=== PATIENT | female | born 1945 | race Caucasian/White ===

== ENCOUNTER 2016-10-30 16:56 | Inpatient (IN) | payer OTHER ==
[~2016-10-30] VITALS: Ht 154.9 cm; Wt 76.2 kg
--- NOTE | ~2016-10-30 | 2DMMODE ---
[facility] [address] [place] [address] 2 D/M-MODE ECHOCARDIOGRAM Name: MIRIAM ALFRED Room #: 455-P [facility] [place] ..#: [id number] Admission: 10/30/16 Attend Phys: Ranjith Gant MD Discharge: 11/01/16 Date of : 43 Date of Service: 11/01/16 1514 Report #: [id number] THIS REPORT FOR: //name// APPROVED REPORT Study performed: 11/01/2016 11:23:16 EXAM: Comprehensive 2D, Doppler, and color-flow Echocardiogram Patient Location: Bedside Room #: [facility] Status: stat Other Information Study Quality: Adequate Indications CVA/TIA Echo Enhancing Agent Indication: Rule out Shunt Agent(s) / Amount(s) Used: Agitated Saline 6 cc 2D Dimensions RVDd: 27.64 mm LVEF(%): 60.00 (>50%) IVSd: 10.65 (7-11mm) LVOT Diam: 18.45 (18-24mm) LVDd: 37.70 mm PWd: 11.43 (7-11mm) Ascending Ao: 33.01 (22-36mm) LVDs: 25.88 (25-40mm) Aortic Root: 23.03 mm IVC: 11.00 mm Hairston's LVEF: 60.00 % Volumes Left Atrial Volume (Systole) Single Plane 4CH: 50.05 mL Single Plane 2CH: 43.29 mL LA ESV Index: 31.00 mL/m2 Aortic Valve AoV Peak Taco.: 1.77 m/s AO Peak Gr.: 12.56 mmHg LVOT Max P.54 mmHg LVOT Max V: 1.06 m/s JOAN Vmax: 1.61 cm2 Mitral Valve E/A Ratio: 0.6 MV Decel. Time: 269.27 ms [facility] [place] [address] 2 D/M-MODE ECHOCARDIOGRAM Name: TANIA ALFREDRA Room #: 455-P [facility]..#: [id number] Admission: 10/30/16 Attend Phys: Ranjith Gant MD Discharge: 11/01/16 Date of : 43 Date of Service: 11/01/16 1514 Report #: [id number] MV E Max Taco.: 0.89 m/s MV A Taoc.: 1.55 m/s MV PHT: 78.09 ms IVRT: 121.11 ms Pulmonary Valve PV Peak Taco.: 0.98 m/s PV Peak Gr.: 3.87 mmHg Pulmonary Vein P Vein S: 0.49 m/s P Vein A: 0.28 m/s P Vein D: 0.29 m/s P Vein A Dur.: 131.5 msec P Vein S/D Ratio: 1.69 Tricuspid Valve TR Peak Taco.: 3.00 m/s RAP Estimate: 10.00 mmHg TR Peak Gr.: 35.98 mmHg Left Ventricle The left ventricle is normal size. Mild concentric left ventricular hypertrophy. Left ventricular systolic function is normal. LVEF is 55-60%. Mild diastolic dysfunction is present (impaired relaxation pattern). Right Ventricle The right ventricle is normal size. The right ventricular systolic function is normal. Atria Left atrium is mildly dilated. Injection of bubbles documented no interatrial shunt. The right atrium size is normal. Aortic Valve The aortic valve is normal in structure. Mild aortic regurgitation. There is no aortic valvular stenosis. Mitral Valve The mitral valve is normal in structure. Mild mitral regurgitation. No evidence of mitral valve stenosis. Tricuspid Valve The tricuspid valve is normal in structure. There is trace tricuspid regurgitation. The right atrial pressure is estimated at 10 mmHg. PAP is estimated at 45 mmHg. Pulmonic Valve Pulmonic [place] [address] 2 D/M-MODE ECHOCARDIOGRAM Name: MIRIAM ALFRED Room #: 455-P [facility] [place] M.R.#: [id number] Admission: 10/30/16 Attend Phys: Ranjith Gant MD Discharge: 11/01/16 Date of : 43 Date of Service: 11/01/16 1514 Report #: [id number] Great Vessels The aortic root is normal in size. IVC is normal in size and collapses <50% with inspiration. <Conclusion> The left ventricle is normal size. Mild concentric left ventricular hypertrophy. Left ventricular systolic function is normal. Mild diastolic dysfunction is present (impaired relaxation pattern). The right ventricle is normal size. Left atrium is mildly dilated. Injection of bubbles documented no interatrial shunt. Mild aortic regurgitation. Mild mitral regurgitation. <ELECTRONICALLY SIGNED> By: Fracisco Hopkins MD 11/01/16 1514 1514 1514 Fracisco Hopkins MD /INF
[2016-10-30 19:09] VITALS: BP 159/95
[2016-10-30] MEDS ORDERED: SIMVASTATIN40 MG PO (20:11)
[2016-10-30] MEDS ORDERED: SYMBICORT160 MCG/4. INH (20:12)
[2016-10-30] MEDS ORDERED: COZAAR 50 MG TA50 M2 PO (20:12)
[2016-10-30] MEDS ORDERED: REQUIP 1 MG TABL1 M1 PO (20:13)
[2016-10-30 23:25] VITALS: BP 165/93
[2016-10-31 04:00] VITALS: BP 169/106
[2016-10-31 04:31] LABS: HEMATOCRIT 43.5 % (37.0-47.0); HEMOGLOBIN 14.5 gm/dL (12.0-15.0); MCH 29.8 pg (26.0-34.0); MCHC 33.3 g/dL (28.0-37.0); MCV 89.5 fL (80.0-100.0); RBC 4.86 mil/uL (4.20-5.00); RDW 13.1 % (10.5-14.5); WBC 10.5 thou/uL (4.0-11.0)
[2016-10-31 04:45] LABS: ANION GAP 8 mmol/L (7-16); BUN 12 mg/dL (7-18); CALCIUM 8.5 mg/dL (8.5-10.1); CHLORIDE 106 mmol/L (98-107); CHOLESTEROL 200 mg/dL (<200); CO2 27 mmol/L (21-32); CREATININE 0.7 mg/dL (0.6-1.0); GLUCOSE 137 mg/dL (74-106); HDL CHOLESTEROL 28 mg/dL (>40); POTASSIUM 3.8 mmol/L (3.5-5.1); SODIUM 141 mmol/L (136-145); TC:HDL 7.1 Ratio (Not establshd); TRIGLYCERIDE 417 mg/dL (<150); TROPONIN-I < 0.04 ng/mL (<0.04-0.07); VLDL 83 mg/dL (<40)
[2016-10-31 04:46] LABS: SERUM ASSESSMENT Slight Lipemia
[2016-10-31 05:57] LABS: URINE BILIRUBIN NEGATIVE (Negative); URINE BLOOD 1+ (Negative); URINE COLOR YELLOW; URINE GLUCOSE-RANDOM* NEGATIVE (Negative); URINE KETONES NEGATIVE (Negative); URINE LEUKOCYTES-REFLEX NEGATIVE (Negative); URINE PROTEIN (DIPSTICK) 2+ (Negative); URINE UROBILINOGEN 0.2 E.U./dl (0.2-1.0)
[2016-10-31 06:07] LABS: SQUAMOUS 4-10 Moderate /LPF (0-3)
[2016-10-31 06:08] LABS: CASTS None Seen /LPF (None Seen); CRYSTALS None Seen /LPF (None Seen); URINE RBC 0-2 Rare /HPF (0-2); URINE WBC-REFLEX 0-5 Rare /HPF (0-5)
[2016-10-31 07:10] VITALS: BP 174/99
[2016-10-31 10:53] LABS: TSH 1.644 uIU/mL (0.358-3.740)
[2016-10-31 11:16] VITALS: BP 174/98
[2016-10-31 15:08] VITALS: BP 174/93
[2016-10-31 20:20] VITALS: BP 150/106
[2016-10-31] MEDS ORDERED: TRAMADOL 50 MG50 MG PO (22:14)
[2016-10-31] MEDS ORDERED: METFORMIN HCL500 MG PO (22:15)
[2016-10-31] MEDS ORDERED: LASIX 40 MG TAB40 M2 PO (22:15)
[2016-10-31] MEDS ORDERED: NEXIUM40 MG PO (22:18)
[2016-10-31] MEDS ORDERED: POTASSIUM99 M2 (22:19)
[2016-10-31] MEDS ORDERED: FISH OIL 1,001000 M2 PO (22:21)
[2016-10-31] MEDS ORDERED: FOLIC ACID1 MG PO (22:22)
[2016-11-01 00:08] LABS: GLYCOHEMOGLOBIN (HGB A1C) 7.6 % (4.8-5.6)
[2016-11-01 05:00] VITALS: BP 163/83
[2016-11-01 05:23] LABS: ABSOLUTE NEUTROPHILS 4.9 thou/uL (1.4-8.2); BASOPHILS 0.9 % (0.0-2.0); EOSINOPHILS 4.2 % (0.0-3.0); HEMATOCRIT 43.4 % (37.0-47.0); HEMOGLOBIN 14.4 gm/dL (12.0-15.0); LYMPHOCYTES 38.5 % (24.0-44.0); MCHC 33.3 g/dL (28.0-37.0); MCV 90.3 fL (80.0-100.0); MONOCYTES 9.5 % (1.0-8.0); PLATELET COUNT 318 thou/uL (150-400); POLYS 46.9 % (36.0-66.0); RDW 12.9 % (10.5-14.5); WBC 10.3 thou/uL (4.0-11.0)
[2016-11-01 05:26] LABS: MANUAL DIFF NO
[2016-11-01 05:30] LABS: CALCIUM 8.7 mg/dL (8.5-10.1); CREATININE 0.6 mg/dL (0.6-1.0); POTASSIUM 3.6 mmol/L (3.5-5.1)
[2016-11-01 07:31] VITALS: BP 174/98
[2016-11-01] MEDS ORDERED: ATORVASTATIN CA10 MG PO (09:09)
[2016-11-01] MEDS ORDERED: ASPIRIN EC325 M1 PO (09:09)
[2016-11-01 12:38] VITALS: BP 174/98
== END 2016-11-01 14:22 | disposition home or self-care (01) | DRG 69 ==
LOC: 4W 16:56
PROVIDERS: Family Medicine; Nurse Practitioner Family
DX: G45.9 Transient cerebral ischemic attack, unspecified (principal); I10 Essential (primary) hypertension; E11.9 Type 2 diabetes mellitus without complications; E78.5 Hyperlipidemia, unspecified; K21.9 Gastro-esophageal reflux disease without esophagitis; E78.00 Pure hypercholesterolemia, unspecified; G25.81 Restless legs syndrome; D72.829 Elevated white blood cell count, unspecified; E87.6 Hypokalemia; Z98.49 Cataract extraction status, unspecified eye; Z87.01 Personal history of pneumonia (recurrent); Z90.710 Acquired absence of both cervix and uterus; Z82.3 Family history of stroke; Z80.9 Family history of malignant neoplasm, unspecified; Z82.49 Family history of ischemic heart disease and other diseases of the circulatory system; Z87.891 Personal history of nicotine dependence
CPT/HCPCS: 10047